=== PATIENT | female | born 1975 | race Caucasian/White ===

== ENCOUNTER → 2017-08-10 | Outpatient (CLI) | payer OTHER | LOC: FIMAGING 10:30 | PROVIDERS: ATTEND Family Medicine | DX: Z12.31 Encounter for screening mammogram for malignant neoplasm of breast (principal); Z80.3 Family history of malignant neoplasm of breast ==

== ENCOUNTER → 2017-11-23 | Outpatient (CLI) | payer OTHER | LOC: FIMAGING 09:39 | PROVIDERS: ATTEND Family Medicine | DX: Z13.820 Encounter for screening for osteoporosis (principal); M40.204 Unspecified kyphosis, thoracic region ==

== ENCOUNTER → 2018-11-02 | Outpatient (CLI) | payer OTHER | LOC: FIMAGING 16:08 ==